=== PATIENT | male | born 1960 | race Caucasian/White ===

== ENCOUNTER → 2016-12-29 | Outpatient (CLI) | payer BC ==
--- NOTE | ~2016-12-29 | 2DMMODE ---
[facility] [address] [facility] [address] [place] [address] 2 D/M-MODE ECHOCARDIOGRAM Name: ILYA CAREY Room #: REG [facility]#: [id number] Admission: 12/29/16 Attend Phys: Rai Choi MD Discharge: Date of : 58 Date of Service: 12/29/16 1458 Report #: [id number] THIS REPORT FOR: //name// APPROVED REPORT Study performed: 12/29/2016 13:02:49 EXAM: Comprehensive 2D, Doppler, and color-flow Echocardiogram Patient Location: Out-Patient Blood Pressure: 124/75 mmHg HR: 81 bpm Rhythm: NSR Other Information Study Quality: Adequate Indications CAD Hx: HTN, HLP, DM, tobacco abuse. 2D Dimensions RVDd: 35.18 mm LVEF(%): 57.44 (>50%) IVSd: 11.47 (7-11mm) LVOT Diam: 20.61 (18-24mm) LVDd: 46.87 mm PWd: 10.30 (7-11mm) Ascending Aorta: 37.45 mm LVDs: 32.73 (25-40mm) Aortic Root: 38.29 mm Betancur's LVEF: 57.44 % Volumes Left Atrial Volume (Systole) Single Plane 4CH: 17.90 mL Single Plane 2CH: 30.34 mL LA ESV Index: 34.00 mL/m2 Aortic Valve AoV Peak Senthil.: 1.47 m/s AO Peak Gr.: 8.66 mmHg LV Max P.38 mmHg LV Max: 1.26 m/s Mitral Valve MV PHT: 68.28 ms MV E Max Senthil.: 0.58 m/s E/A Ratio: 0.7 [facility] [address] [address] 2 D/M-MODE ECHOCARDIOGRAM Name: ILYA CAREY MIROSLAVA Room #: REG [facility]#: [id number] Admission: 12/29/16 Attend Phys: Rai Choi MD Discharge: Date of : 58 Date of Service: 12/29/16 1458 Report #: [id number] MV A Senthil.: 0.86 m/s MV Decel. Time: 235.44 ms Pulmonary Valve PV Peak Senthil.: 1.24 m/s PV Peak Gr.: 6.16 mmHg Tricuspid Valve TR Peak Senthil.: 1.75 m/s RAP Estimate: 5.00 mmHg TR Peak Gr.: 12.26 mmHg RVSP: 17.00 mmHg Left Ventricle The left ventricle is normal size. There is normal LV segmental wall motion. There is normal left ventricular wall thickness. The left ventricular systolic function is normal. LVEF is 55%. Grade I - abnormal relaxation pattern. Right Ventricle The right ventricle is normal size. The right ventricular systolic function is normal. Atria Left atrium is borderline dilated. The right atrium size is normal. Aortic Valve Aortic valve leaflets are mildly thickened. No aortic regurgitation is present. There is no aortic valvular stenosis. Mitral Valve The mitral valve is normal in structure. There is no mitral valve regurgitation noted. Tricuspid Valve The tricuspid valve is normal in structure. There is trace tricuspid regurgitation. The right atrial pressure is estimated at 5 mmHg. Estimated PAP of 17mmHg. Pulmonic Valve The pulmonary valve is normal in structure. Trace pulmonic regurgitation. Great Vessels Aortic root measures at the upper limits of normal. Ascending aorta measures at the upper limits of normal. IVC is normal in size and collapses >50% with inspiration. Pericardium [facility] [address] [address] 2 D/M-MODE ECHOCARDIOGRAM Name: ILYA CAREY Room #: REG [facility]#: [id number] Admission: 12/29/16 Attend Phys: Rai Choi MD Discharge: Date of : 58 Date of Service: 12/29/16 1458 Report #: [id number] There is no pericardial effusion. <Conclusion> The left ventricle is normal size. The left ventricular systolic function is normal. The right ventricle is normal size. Left atrium is borderline dilated. The right atrium size is normal. Aortic valve leaflets are mildly thickened. There is no aortic valvular stenosis. The mitral valve is normal in structure. There is trace tricuspid regurgitation. The right atrial pressure is estimated at 5 mmHg. Estimated PAP of 17mmHg. <ELECTRONICALLY SIGNED> By: Rai Choi MD 12/29/16 1458 57 57 Rai Choi MD /INF
== END ==
LOC: CV 11:13
DX: I25.10 Atherosclerotic heart disease of native coronary artery without angina pectoris (principal); I10 Essential (primary) hypertension; E78.5 Hyperlipidemia, unspecified; E11.9 Type 2 diabetes mellitus without complications

== ENCOUNTER → 2017-12-28 | Outpatient (CLI) | payer BC ==
--- NOTE | ~2017-12-28 | EXE ---
[facility] [address] [employer] [address] STRESS ECHOCARDIOGRAM Name: ILYA CAREY Room #: REG [facility]#: [id number] Admission: 12/28/17 Attend Phys: Rai Choi MD Discharge: Date of : 58 Date of Service: 12/28/17 1528 Report #: [id number] THIS REPORT FOR: //name// APPROVED REPORT Study performed: 12/28/2017 14:04:40 Exam: Stress Echocardiogram Indication: Screening for CAD Patient Location: Echo lab Stress Nurse: Paula Espinosa RN Status: routine Ht: 5 ft 8 in HR: 110 bpm BP: 119/77 mmHg Medical History Medications: Lisinopril Cardiac Risk Factors: HTN, DM, FHX of CAD Procedure The patient underwent an Exercise Stress Test using the Douglas Protocol. Blood pressure, heart rate, and EKG were monitored. An Echocardiogram was performed by durability technician in four stages in quad fashion. At peak stress, four selected images were obtained and placed side by side with resting images for comparison. Stress Test Details Stress Test: Exercise stress testing was performed using a Douglas protocol. HR Resting HR: 110 bpm Max Heart Rate (APMHR): 162 bpm Max HR Achieved: 166 bpm Target HR (85% APMHR): 137 bpm % of APMHR: 102 Recovery HR: 98 bpm HR response to stress: Normal HR response to stress BP Resting BP: 117/77 mmHg Max BP: 155/80 mmHg Recovery BP: 110/78 mmHg ECG Resting ECG: Sinus Rhythm with early repolarization [facility] [address] [place] [address] STRESS ECHOCARDIOGRAM Name: ILYA CAREY MIROSLAVA Room #: REG CL [facility]#: [id number] Admission: 12/28/17 Attend Phys: Rai Choi MD Discharge: Date of : 58 Date of Service: 12/28/17 1528 Report #: [id number] Stress ECG: Sinus Rhythm with early repolarization changes ST Change: Non-ischemic Maximum ST Deviation: 0 mm Clinical Reason for Termination: Completed protocol Stress Symptoms: none Exercise duration: 9 min 00 sec Highest Stage Achieved: Stage 3: 3.4 mph at 14% grade. Exercise capacity: 10.4 METs Pre-Stress Echo The resting Echocardiogram showed normal left ventricular contractility with an estimated Ejection Fraction of about 55%. Normal wall motion in all segments on baseline images. Post-Stress Echo The stress Echocardiogram showed normal left ventricular contractility with an estimated Ejection Fraction of about 65-70%. Normal augmentation of wall motion in all segments on post stress images. Clinical No clinical or ECG evidence for ischemia. Conclusion Clinical Response: Non-ischemic Exercise Capacity: Average Stress ECG Response: Non-ischemic Stress Echo Images: Non-ischemic No clinical, EKG or echocardiographic evidence for ischemia. Other Information Study Quality: Good <Conclusion> No clinical, EKG or echocardiographic evidence for ischemia. <ELECTRONICALLY SIGNED> By: Rai Choi MD 12/28/17 1528 1528 1528 Rai Choi MD /INF
== END ==
LOC: CV 12:14
DX: I25.10 Atherosclerotic heart disease of native coronary artery without angina pectoris (principal); I10 Essential (primary) hypertension; E11.9 Type 2 diabetes mellitus without complications

== ENCOUNTER → 2019-12-26 | Outpatient (CLI) | payer BC | LOC: SJCVCIMAG 08:45 | PROVIDERS: ATTEND Internal Medicine Cardiovascular Disease | DX: I07.1 Rheumatic tricuspid insufficiency (principal); R94.31 Abnormal electrocardiogram [ECG] [EKG]; I25.10 Atherosclerotic heart disease of native coronary artery without angina pectoris; I10 Essential (primary) hypertension; E78.00 Pure hypercholesterolemia, unspecified; E78.5 Hyperlipidemia, unspecified; E03.9 Hypothyroidism, unspecified; Z79.82 Long term (current) use of aspirin; Z79.84 Long term (current) use of oral hypoglycemic drugs; Z79.899 Other long term (current) drug therapy; Z82.49 Family history of ischemic heart disease and other diseases of the circulatory system; Z87.891 Personal history of nicotine dependence ==

== ENCOUNTER → 2021-01-09 | Outpatient (CLI) | payer BC | LOC: SJCVCIMAG 12-31 08:48 | PROVIDERS: ATTEND Internal Medicine Cardiovascular Disease | DX: R93.1 Abnormal findings on diagnostic imaging of heart and coronary circulation (principal); I25.10 Atherosclerotic heart disease of native coronary artery without angina pectoris; I10 Essential (primary) hypertension; E78.00 Pure hypercholesterolemia, unspecified; E11.9 Type 2 diabetes mellitus without complications; E03.9 Hypothyroidism, unspecified; E78.5 Hyperlipidemia, unspecified; Z88.8 Allergy status to other drugs, medicaments and biological substances; Z79.82 Long term (current) use of aspirin; Z79.899 Other long term (current) drug therapy; Z87.891 Personal history of nicotine dependence; Z72.89 Other problems related to lifestyle ==